=== PATIENT | male | born 1980 | race Caucasian/White ===

== ENCOUNTER 2020-11-29 13:00 | Emergency (ER) | payer BC, OTHER ==
[~2020-11-29] VITALS: Ht 193 cm; Wt 106.6 kg
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
[2020-11-29 13:22] VITALS: BP 138/89
[2020-11-29] MEDS ORDERED: LIDOCAINE HCL/MPF 1% 30 ML VIAL IJ ONE (15:26)
--- NOTE | 2020-11-29 16:57 | NUR ---
Patient discharged to home in stable condition. Written and verbal after care instructions given. Patient verbalizes understanding of instruction.
== END 2020-11-29 16:57 | disposition home or self-care (01) ==
LOC: ER 13:15
DX: S01.312A Laceration without foreign body of left ear, initial encounter (principal); F32.9 Major depressive disorder, single episode, unspecified; F41.9 Anxiety disorder, unspecified; Y08.89XA Assault by other specified means, initial encounter; Y93.89 Activity, other specified; Y92.89 Other specified places as the place of occurrence of the external cause; Y99.8 Other external cause status
CPT/HCPCS: 12011; 69000; 70450; 99284; A6403; J3490